=== PATIENT | female | born 1960 | race Caucasian/White ===

== ENCOUNTER 2024-09-22 13:28 | Outpatient (AMB) | payer BC, SELFPAY ==
--- NOTE | 2024-09-22 13:28 | A.OFFPC_ITS ---
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 Intake Note: New patient visit Television Equipment Operator Required: No Allergies Penicillins Allergy (Mild, Verified 09/22/24 13:33) Rash Sulfa (Sulfonamide Antibiotics) Allergy (Mild, Verified 09/22/24 13:33) Rash Medication List - Last Reconciled 09/22/24 by Eleonora Saldana PA-C atorvastatin 10 mg PO DAILY cholecalciferol (vitamin D3) 50 mcg PO DAILY docosahexaenoic acid (Algal [place]-3 DHA) PO multivitamin 1 tab PO DAILY psyllium husk (Metamucil) 0.4 grams PO DAILY thyroid (pork) (Irwin Thyroid) 60 mg PO DAILY Tobacco use date assessed: 09/22/24 Fall risk assessment: No Falls in past year Dental Screening Dental Screen Date: 09/22/24 Did you have a dental visit in the last 12 months?: Yes Did you have a dental problem in the last 6 months where you did not have access to dental care?: No Was dental information given to patient?: Patient has dentist HPI TORCH CUTTER Establish Care HPI Details Patient is a 64-year-old female with a significant past medical history of hypothyroidism, vitamin-D deficiency, chronic neck and hyperlipidemia presenting today to establish care. She is transferring from Dr. Rojas and Dr. Dorman and had a cpe in Apr 2024. CV: Blood pressure today in the office is 122/76. Cholesterol is managed with atorvastatin 10 mg daily. No fam hx of GA or CVA. Endo: Last TSH was WNL. She was on Irwin 60 mg daily until 3 weeks. Neuro: has trialed amitriptyline for headaches/neck pain. She states she stopped it last month. No change in sx. She says that she did have an x-ray of her neck but this was about 15 years ago. Never had an MRI of her head. Most of her headaches feels like it travels up from her neck. No vision changes, numbness, tingling or weakness. Sometimes if she squeezes her eyes shut she does feel like her head moves a little bit. She does not feel dizzy with her eyes lightly closed. No dizziness otherwise. Up-to-date eye exam Varnish Thinner: Follows in [place] with Donna Gonsalez- saw her last month Mammo: [place] this week [place] [place] Colonoscopy: never did, refused. Has a cologuard but has not sent it in yet Bone density: overdue [facility] Social History Housing: House Patient Tobacco Use Status: Former Tobacco user Cigarette Packs Per Day: 0.5 Years Smoked: 10 e-Cigarette/Vaping Use: Never Used Second Hand Smoke Exposure: No service: No Current occupational status: retired Cognitive needs: No Hearing needs: No Vision needs: No Physical exam (Primary Care) Tobacco/Smoking Status: Tobacco use Status Tobacco use date assessed 09/22/24 09/22/24 13:31 Patient Tobacco Use Status Never used Tobacco 09/22/24 13:31 e-Cigarette/Vaping Use Never Used 09/22/24 13:31 Const Orientation/consciousness: patient oriented x3 HENMT Ears: hearing grossly normal bilaterally Neck Thyroid: Thyroid normal Lymphatic: no lymphadenopathy noted Resp Auscultation: clear to auscultation bilaterally Cardio Rate: regular rate Rhythm: regular rhythm Heart sounds: S1 normal heart sound present and S2 normal heart sound present GI Inspection: Yes normal to inspection Palpation (GI): Soft to palpation and Other GI palpation findings present (nontender, no cva tenderness) Auscultation: normoactive bowel sounds Rectal Exam - Female: deferred Skin General skin exam: no rashes or lesions noted Neuro General: patient oriented x3, gait normal and no focal motor deficits Coding Level of Care Code New Pt Level 4 (91023) Complex EM visit Add On G2211 Diagnoses Dyslipidemia E78.5 Vitamin D deficiency E55.9 Hypothyroid E03.9 Chronic neck pain M54.2; G89.29 Tension headache G44.209 Assessment & Plan Assessment & Plan (1) Dyslipidemia: Code(s): E78.5 - Hyperlipidemia, unspecified Category: Medical Plan: Lipids and LFTs ordered. Continue atorvastatin (2) Vitamin D deficiency: Code(s): E55.9 - Vitamin D deficiency, unspecified Category: Medical Plan: Continue vitamin-D supplement. Bone density ordered. (3) Hypothyroid: Code(s): E03.9 - Hypothyroidism, unspecified Category: Medical Plan: TSH ordered. We will follow up pending test results (4) Chronic neck pain: Code(s): M54.2 - Cervicalgia; G89.29 - Other chronic pain Category: Medical Plan: X-ray ordered. (5) Tension headache: Code(s): G44.209 - Tension-type headache, unspecified, not intractable Category: Medical Plan: Encouraged massage therapy. Advised to contact me if anything changes or worsens. Plan Bone density ordered Labs ordered Encouraged her to complete the Cologuard. Orders: Orders Comprehensive [place]. Panel Fast Today E03.9 - Hypothyroidism, unspecified, E55.9 - Vitamin D deficiency, unspecified, E78.5 - Hyperlipidemia, unspecified, G44.209 - Tension-type headache, unspecified, not intractable, G89.29 - Other chronic pain, M54.2 - Cervicalgia Hemoglobin A1c Today E03.9 - Hypothyroidism, unspecified, E55.9 - Vitamin D deficiency, unspecified, E78.5 - Hyperlipidemia, unspecified, G44.209 - Tension- type headache, unspecified, not intractable, G89.29 - Other chronic pain, M54.2 - Cervicalgia, R73.01 - Impaired fasting glucose TSH reflex Free T4 Today E03.9 - Hypothyroidism, unspecified, E55.9 - Vitamin D deficiency, unspecified, E78.5 - Hyperlipidemia, unspecified, G44.209 - Tension- type headache, unspecified, not intractable, G89.29 - Other chronic pain, M54.2 - Cervicalgia XR DEXA axial skeleton Today E03.9 - Hypothyroidism, unspecified, E55.9 - Vitamin D deficiency, unspecified, N95.9 - Unspecified menopausal and perimenopausal disorder XR cervical spine 3V Today M54.2 - Cervicalgia Complete Blood Count Auto Diff Today E03.9 - Hypothyroidism, unspecified, E55.9 - Vitamin D deficiency, unspecified, E78.5 - Hyperlipidemia, unspecified, G44.209 - Tension-type headache, unspecified, not intractable, G89.29 - Other chronic pain, M54.2 - Cervicalgia Lipid Panel Today E03.9 - Hypothyroidism, unspecified, E55.9 - Vitamin D deficiency, unspecified, E78.5 - Hyperlipidemia, unspecified, G44.209 - Tension- type headache, unspecified, not intractable, G89.29 - Other chronic pain, M54.2 - Cervicalgia Microalbumin, Random (w Creat) Today E03.9 - Hypothyroidism, unspecified, E55.9 - Vitamin D deficiency, unspecified, E78.5 - Hyperlipidemia, unspecified, G44.209 - Tension-type headache, unspecified, not intractable, G89.29 - Other chronic pain, M54.2 - Cervicalgia Vitamin B12 and Folate Today E03.9 - Hypothyroidism, unspecified, E55.9 - Vitamin D deficiency, unspecified, E78.5 - Hyperlipidemia, unspecified, G44.209 - Tension-type headache, unspecified, not intractable, G89.29 - Other chronic pain, M54.2 - Cervicalgia
[2024-09-22 13:37] VITALS: BP 122/76; PULSE 81; RESP 12; O2SAT 98; BMI 20.2
== END 2024-09-22 14:04 | disposition home or self-care (01) ==
LOC: HO.HMCFM 13:29
PROVIDERS: PCP Physician Assistant; Visit Provider Physician Assistant
DX: E78.5 Hyperlipidemia, unspecified (principal); E55.9 Vitamin D deficiency, unspecified; E03.9 Hypothyroidism, unspecified; M54.2 Cervicalgia; G89.29 Other chronic pain; G44.209 Tension-type headache, unspecified, not intractable

== ENCOUNTER 2024-10-19 12:57 | Outpatient (REF) | payer MEDICARE, BC, SELFPAY ==
--- NOTE | ~2024-10-19 | XR_ITS ---
CLINICAL HISTORY: M54.2 - Cervicalgia 4 views cervical spine Comparison: None Findings: Minimal grade 1 retrolisthesis C6 on C7. No acute fractures or dislocation. [id number] multilevel disc space narrowing especially at C3-4 and C6-7. Moderate to moderately severe multilevel facet degenerative changes. Prevertebral soft tissues within normal limits. IMPRESSION: 1. No acute fracture in the cervical spine. 2. Moderate degenerative changes. This document has been electronically signed by: Chastity Parra DO on 10/20/2024 15:13:53
[2024-10-19 13:10] LABS: MANUAL DIFF FLAG NO
[2024-10-19 13:39] LABS: Basophils Absolute Auto 0.1 X10*3/uL (0.0-0.2); Basophils Percent Auto 1.2 % (0-2); Eosinophils Absolute Auto 0.2 X10*3/uL (0.0-0.4); Eosinophils Percent Auto 3.9 % (0-4); Hematocrit 40.6 % (37.0-47.0); Hemoglobin 13.4 g/dl (12.0-16.0); Imm Gran Abs Auto 0.01 X10*3/uL (0.00-0.03); Imm Gran Pct Auto 0.2 % (0.0-0.4); Lymphocytes Absolute Auto 1.2 X10*3/uL (1.2-4.9); Lymphocytes Percent Auto 28.6 % (20-40); Mean Corpuscular Hemoglobin 29.1 pg (27.0-33.0); Mean Corpuscular Volume 88.1 fL (80.0-98.0); Monocytes Absolute Auto 0.3 X10*3/uL (0.1-1.2); Monocytes Percent Auto 6.6 % (2-11); Neutrophils Absolute Auto 2.5 x10*3/uL (2.0-8.3); Neutrophils Percent Auto 59.5 % (45-73); Platelet Count 224 X10*3/uL (160-400); Red Blood Count 4.61 X10*6/uL (4.20-5.50); Red Cell Distribution Width 12.6 % (11.0-16.0); White Blood Count 4.1 X10*3/uL (4.8-10.8)
[2024-10-19 13:53] LABS: Estimated Average Glucose 100 mg/dL; Hemoglobin A1C 116.1433 umol/L; Hemoglobin A1c % 5.1 % (<6.0); Total Hemoglobin (HGBA1C) 3553.4044 umol/L
[2024-10-19 14:45] LABS: Creatinine Urine 67.31 mg/dL; Microalbumin Urine < 5.0 mg/L
[2024-10-19 14:49] LABS: Folate 12.4 ng/mL (> or = 4.0); Vitamin B12 617 pg/mL (200-900)
[2024-10-19 14:50] LABS: Alanine Aminotransferase 18 U/L (0-31); Albumin Level 4.8 g/dL (3.5-5.0); Alkaline Phosphatase 63 U/L (39-117); Anion Gap 10 (12-20); Aspartate Amino Transferase 26 U/L (5-31); Bilirubin Total 0.4 mg/dL (0.0-1.0); Blood Urea Nitrogen 16 mg/dL (9-16); Calcium 9.7 mg/dL (8.4-10.2); Carbon Dioxide 27 mmol/L (22-29); Chloride 108 mmol/L (96-108); Cholesterol 212 mg/dL (<200); Estimated Glomerular Filt Rate > 60; Glucose Fasting 84 mg/dL (60-99); HDL Cholesterol 76 mg/dL (>40); LDL Cholesterol Calculated 124 mg/dL (<100); Sodium 141 mmol/L (135-145); Triglycerides 60 mg/dL (<150)
[2024-10-19 15:07] LABS: TSH reflex Free T4 4.14 uIU/mL (0.32-4.0)
[2024-10-19 17:12] LABS: Free T4 (Free Thyroxine) 0.78 ng/dL (0.71-1.85)
== END 2024-10-19 12:58 | disposition home or self-care (01) ==
LOC: HO.XRAY 12:57
PROVIDERS: PCP Physician Assistant; Visit Provider Physician Assistant
DX: M54.2 Cervicalgia (principal); G89.29 Other chronic pain; G44.209 Tension-type headache, unspecified, not intractable; E03.9 Hypothyroidism, unspecified; E55.9 Vitamin D deficiency, unspecified; E78.5 Hyperlipidemia, unspecified; R73.01 Impaired fasting glucose
CPT/HCPCS: 36415; 72040; 80053; 80061; 82043; 82570; 82607; 82746; 83036; 84439; 84443; 85025

== ENCOUNTER → 2024-10-19 13:22 | Outpatient (BNV) | payer MEDICARE, BC, SELFPAY | PROVIDERS: PCP Physician Assistant; Visit Provider Radiology Diagnostic Radiology | DX: M50.30 Other cervical disc degeneration, unspecified cervical region (principal) | CPT/HCPCS: 72040 ==

== ENCOUNTER 2024-10-28 13:25 | Outpatient (REF) | payer MEDICARE, BC, SELFPAY ==
--- NOTE | ~2024-10-28 | MM_ITS ---
EXAMINATION: DXA BONE DENSITY AXIAL HISTORY: N95.9 - Unspecified menopausal and perimenopausal disorder TECHNIQUE: [employer] Dual energy absorptiometry (DEXA) of the lumbar spine, total left hip, and femoral neck was performed. COMPARISON: There are no prior studies for comparison. FINDINGS: The bone mineral density of the lumbar spine is 0.944 with a T-score of -2.0, and a Z-score of 0.1. This is indicative of osteopenia. The bone mineral density of the left total hip is 0.776 with a T-score of -1.8, and a Z-score of -0.3. This is indicative of osteopenia. The bone mineral density of the left femoral neck is 0.737 with a T-score of -2.2, and a Z-score of -0.4. This is indicative of osteopenia. FRACTURE RISK: The FRAX index suggests a risk of major osteoporotic fracture of 9.9%, and of hip fracture 1.9%. MM/XR DEXA axial skeleton IMPRESSION: Based on bone mineral density, and according to World Health Organization (WHO) criteria, the diagnosis is consistent with osteopenia. All bone density values are in grams per centimeter squared (g/cm2). Statistically, 68% of repeat scans fall within 1 SD (+/- 0.010 g/cm2 for AP spine L1-L4) and 1 SD (+/- 0.012 g/cm2 for femur total) FRAX is a trademark of the [employer]'s [employer] Metabolic Bone Disease, a World Health Organization (WHO) Collaborating Center. Electronically signed by: Raffaele Martin MD 10/28/2024 02:41 PM EDT
== END 2024-10-28 13:26 | disposition home or self-care (01) ==
LOC: HO.MAMMO 13:25
PROVIDERS: PCP Physician Assistant; Visit Provider Physician Assistant
DX: Z13.820 Encounter for screening for osteoporosis (principal); Z78.0 Asymptomatic menopausal state; E03.9 Hypothyroidism, unspecified; E55.9 Vitamin D deficiency, unspecified
CPT/HCPCS: 77080

== ENCOUNTER → 2024-10-28 13:30 | Outpatient (BNV) | payer MEDICARE, BC, SELFPAY | PROVIDERS: PCP Physician Assistant; Visit Provider Radiology Diagnostic Radiology | DX: E28.39 Other primary ovarian failure (principal) | CPT/HCPCS: 77080 ==

== ENCOUNTER 2024-11-25 15:13 | Outpatient (AMB) | payer MEDICARE, BC, SELFPAY ==
--- NOTE | 2024-11-25 15:19 | MHC.PC.OV ---
Vital Signs 11/25/24 15:22 Height 5 ft 2.68 in Weight 113 lb 6 oz BMI 20.3 BP 118/76 Blood Pressure Location Lt brachial Position Sitting Respiration 12 Pulse 90 Pulse Source Pulse Oximeter Pulse Oximetry (%) 95 Oxygen Delivery Method Room Air Intake Visit Reasons: labs and meds Intake Note: Lab results and medication follow up. Went back on amitriptylin. Kiss Setter Hand Required: No Allergies Penicillins Allergy (Mild, Verified 11/25/24 15:22) Rash Sulfa (Sulfonamide Antibiotics) Allergy (Mild, Verified 11/25/24 15:22) Rash Medication List - Last Reconciled 11/25/24 by Eleonora Saldana PA-C amitriptyline 30 mg PO BEDTIME atorvastatin 10 mg PO DAILY cholecalciferol (vitamin D3) 50 mcg PO DAILY docosahexaenoic acid (Algal [place]-3 DHA) PO hydrocortisone 2.5% topical BID multivitamin 1 tab PO DAILY psyllium husk (Metamucil) 0.4 grams PO DAILY Tobacco use date assessed: 11/25/24 Fall risk assessment: No Falls in past year Last assessed Fall Risk: 11/25/24 Dental Screening Dental Screen Date: 09/22/24 HPI labs and meds HPI Details Patient is a 64-year-old female with a significant past medical history of hypothyroidism, vitamin-D deficiency, chronic neck and hyperlipidemia presenting today to [facility] care. She is transferring from Dr. Rojas and Dr. Dorman and had a cpe in Apr 2024. CV: Blood pressure today in the office is 118/76. Cholesterol is managed with atorvastatin 10 mg daily. No fam hx of GA or CVA. Endo: Last TSH was slightly elevated. She states that she has no symptoms of hypothyroidism and wishes to remain off of [place] thyroid. She has not been off of this for a few months and feels fine. She would rather just screen the TSH. Neuro: She is currently on amitriptyline 30 mg for head/neck pain and states that it does seem like it helps. She had previously stopped it for about a month in the neck pain was a bit worse but restarting it has made some improvement. She did have an x-ray which did show moderate severe arthritic changes. She states that Tylenol and Motrin do not do anything for her. She has seen neurology in the past for this and states that she is not sure if she wants to go back for her headaches. Most of her headaches feels like it travels up from her neck. No vision changes, numbness, tingling or weakness. 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 Has a cologuard but has not sent it in yet Bone density: UTD- osteopenia on vitamin-D, calcium [facility] Social History Housing: House Patient Tobacco Use Status: Former Tobacco user Cigarette Packs Per Day: 0.5 Years Smoked: 10 e-Cigarette/Vaping Use: Never Used Second Hand Smoke Exposure: No service: No Current occupational status: retired Cognitive needs: No Hearing needs: No Vision needs: No Questionnaire Thrive Questionnaire Date Thrive assessed: 09/22/24 I am a: Patient What is your living situation today?: I have a steady place to live Within the past 12 months, did the food you bought not last and you didn't have the money to get more?: Never true Within the past 12 months, did you worry whether your food would run out before you got money to buy more?: Never true Do you have trouble paying for medicines?: No Do you have trouble getting transportation to medical appointments?: No Do you have trouble paying your heating and electricity bill?: No Do you have trouble taking care of your child, family member or friend?: No Do you have trouble with day-to-day activities such as bathing, preparing meals, shopping, managing finances, etc.?: No Are you currently unemployed and looking for a job?: No Are you interested in more education?: No Please select the resources that you would like help with: None Currently or been in a relationship where the following occur: No concerns reported THRIVE Score: 0 AUDIT C Alcohol Use Questionnaire (AUDIT-C) 1. How often do you have a drink containing alcohol?: 4 or more times a week 2. How many drinks containing alcohol do you have on a typical day when you are drinking?: 1 or 2 3. How often do you have six or more drinks on one occasion?: Never Total Score: 4 Physical exam (Primary Care) Vital Signs: Last Vital Signs Pulse 90 11/25/24 15:22 Resp 12 11/25/24 15:22 BP 118/76 11/25/24 15:22 Pulse Ox 95 11/25/24 15:22 Oxygen Delivery Method Room Air 11/25/24 15:22 BMI result Body Mass Index 20.3 Tobacco/Smoking Status: Tobacco use Status Tobacco use date assessed 11/25/24 11/25/24 15:23 Patient Tobacco Use Status Former Tobacco user 11/25/24 15:23 e-Cigarette/Vaping Use Never Used 11/25/24 15:23 Thrive Assessment: Date of Thrive Assessment Date Thrive assessed 09/22/24 11/25/24 15:23 Currently or been in a relationship where the following occur: No concerns reported Const Orientation/consciousness: patient oriented x3 HENMT Ears: hearing grossly normal bilaterally Neck Thyroid: Thyroid normal Lymphatic: no lymphadenopathy noted Resp Auscultation: clear to auscultation bilaterally Cardio Rate: regular rate Rhythm: regular rhythm Heart sounds: S1 normal heart sound present and S2 normal heart sound present GI Inspection: Yes normal to inspection Palpation (GI): Soft to palpation and Other GI palpation findings present (nontender, no cva tenderness) Auscultation: normoactive bowel sounds Rectal Exam - Female: deferred Skin General skin exam: no rashes or lesions noted Neuro General: patient oriented x3, gait normal and no focal motor deficits Results Reviewed Results Reviewed: Laboratory Tests 10/19/24 13:09 WBC 4.1 L RBC 4.61 Hgb 13.4 Hct 40.6 Plt Count 224 Sodium 141 Potassium 4.0 Chloride 108 Carbon Dioxide 27 Anion Gap 10 L BUN 16 Creatinine 0.77 Estimated GFR > 60 Fasting Glucose 84 Hemoglobin A1c % 5.1 Calcium 9.7 Total Bilirubin 0.4 AST 26 ALT 18 Alkaline Phosphatase 63 Total Protein 7.0 Albumin 4.8 Triglycerides 60 Cholesterol 212 H LDL Cholesterol, Calc 124 H HDL Cholesterol 76 Vitamin B12 617 TSH 4.14 H Free T4 0.78 MM/XR DEXA axial skeleton IMPRESSION: Based on bone mineral density, and according to World Health Organization (WHO) criteria, the diagnosis is consistent with osteopenia. Coding Level of Care Code Est Pt Level 4 (29303) Complex EM visit Add On G2211 Diagnoses Chronic neck pain M54.2; G89.29 Hypothyroid E03.9 Tension headache G44.209 Assessment & Plan Assessment & Plan (1) Chronic neck pain: Code(s): M54.2 - Cervicalgia; G89.29 - Other chronic pain Category: Medical Plan: We will try adding meloxicam. Discussed risks and benefits and adverse effects of the medication. (2) Hypothyroid: Code(s): E03.9 - Hypothyroidism, unspecified Category: Medical Plan: We will continue to monitor (3) Tension headache: Code(s): G44.209 - Tension-type headache, unspecified, not intractable Category: Medical Plan: I did offer consult to neurology but she is going to wait and think about this. She will continue with the amitriptyline. Orders: Orders TSH reflex Free T4 11/25/24 E03.9 - Hypothyroidism, unspecified Medications: New meloxicam 15 mg PO DAILY 30 tabs 1RF
[2024-11-25 15:22] VITALS: BP 118/76; PULSE 90; RESP 12; O2SAT 95; BMI 20.3
== END 2024-11-25 15:50 | disposition home or self-care (01) ==
LOC: HO.HMCFM 15:14
PROVIDERS: PCP Physician Assistant; Visit Provider Physician Assistant
DX: M54.2 Cervicalgia (principal); G89.29 Other chronic pain; E03.9 Hypothyroidism, unspecified; G44.209 Tension-type headache, unspecified, not intractable

== ENCOUNTER → 2024-11-25 15:13 | Outpatient (BNVA) | payer MEDICARE, BC, SELFPAY | PROVIDERS: PCP Physician Assistant; Visit Provider Physician Assistant | DX: M54.2 Cervicalgia (principal); G89.29 Other chronic pain; E03.9 Hypothyroidism, unspecified; G44.209 Tension-type headache, unspecified, not intractable | CPT/HCPCS: 99212 ==

== ENCOUNTER 2025-04-27 15:12 | Outpatient (REF) | payer MEDICARE, BC, SELFPAY ==
--- NOTE | ~2025-04-27 | XR_ITS ---
EXAMINATION: XR TOES, LEFT CLINICAL INFORMATION: M79.675 - Pain in left toe(s) COMPARISON: None available. TECHNIQUE: 3 views of the left third toe were obtained. FINDINGS: There is an oblique fracture of the mid diaphysis of the proximal phalanx of the third digit. There is mild displacement. No significant angulation or override. Fracture appears possibly subacute, with mild sclerosis of the fracture lines. No periosteal new bone formation. No additional fractures. Joint spaces are maintained. No soft tissue abnormality. XR/XR toe LT min 2V IMPRESSION: Subacute appearing spiral mildly displaced fracture of the mid diaphysis of the proximal phalanx of the third digit. Electronically signed by: Tai Mahoney MD 04/27/2025 03:43 PM EDT
--- OUTSIDE RECORDS SUMMARY | 2025-04-27 18:46 | XMS_ITS | Encounter Summary ---
Author Organization [facility] Address [address] [place] [address] Phone Care Team Providers Care Stave And Bolt Equalizer Name Role Phone Alecia Rojas MD Unavailable [phone] Alecia Rojas MD Primary Care Provider [phone] Eleonora Saldana Primary Care Provider [phone] Encounter Details Date Type Department Care Team (Late st Contact Info) Description 04/22/2024 Procedure Pass [facility], [facility] [address] [place] [address] Social History Tobacco Use Types Packs/Day Years Used Date Smoking Tobacco: Former Cigarettes 0.3 10 0 07/14/1981 - 07/14/1991 Smokeless Tobacco: Never Comments:about 25 years ago Alcohol Use Standard Drinks/Week Comments Yes 5 (1 standard drink = 0.6 oz pur e alcohol) Education Answer Date Recorded Are you interested in more education? Not on sierra e 11/08/2022 Are you concerned about learning? Not on file 11/08/2022 No 11/08/2022 No 11/08/2022 Digital Access Answer Date Recorded No 12/09/2022 No 12/09/2022 Reliable internet access at home? Not on file 12/09/2022 Device with a working camera? Not on file Comments No Sex and Gender Information Value Date Recorded Sex Assigned at Female 10/19/2021 11:45 PM EDT Legal Sex Female 9:49 PM EDT Gender Identity Female 10/19/2021 11:45 PM EDT Sexual Orientation Not on file documented as of this encounter Plan of Treatment Upcoming Encounters Date Type Department Care Team (Late st Contact Info) Description 03/10/2026 10:00 AM EDT Office Visit [facility] [address] [facility] [address] [place] [address] Josey Garcia MD [address] [facility] [address] [place] [address] [email or web address] documented as of this encounter Visit Diagnoses Not on filedocumented in this encounter Care Teams Stave And Bolt Equalizer Relationship Specialty Start Date End Date Alecia Rojas MD [address] [place] [address] [email or web address] PCP - General 07/17/17 09/26/24 Eleonora Saldana PA [address] [place] [id number] PCP - General Physician Business Excellence Manager 09/27/24 Alecia Rojas MD [address] [place] [address] [email or web address] Historical LMR Provider 05/03/17 documented as of this encounter Additional Source Comments The information contained in this document represents components of the legal health record. It is not the complete legal health record.[facility]
--- OUTSIDE RECORDS SUMMARY | 2025-04-27 18:46 | XMS_ITS | Encounter Summary ---
Author Organization [facility] Address [address] [place] [address] Phone Care Team Providers Care Actuarial Associate Name Role Phone Angeles Rody Jose BRANDON Unavailable Liudmila Laws MD Unavailable [phone] Alecia Rojas MD Unavailable Misael Ley MD Unavailable Alecia Rojas MD Primary Care Provider Eleonora Saldana Primary Care Provider [phone] Encounter Details Date Type Department Care Team (Late st Contact Info) Description 05/01/2021 Procedure Pass [facility], [address] [address] Social History Tobacco Use Types Packs/Day Years Used Date Smoking Tobacco: Former Smokeless Tobacco: Never Comments:about 25 years ago Comments No Sex and Gender Information Value Date Recorded Sex Assigned at Female 10/19/2021 11:45 PM EDT Legal Sex Female 9:49 PM EDT Gender Identity Female 10/19/2021 11:45 PM EDT Sexual Orientation Not on file documented as of this encounter Plan of Treatment Upcoming Encounters Date Type Department Care Team (Late st Contact Info) Description 03/10/2026 10:00 AM EDT Office Visit [facility] [address] [facility] [address] [place] [address] Josey Garcia MD [address] [facility] [place] [address] [email or web address] documented as of this encounter Visit Diagnoses Not on filedocumented in this encounter Care Teams Actuarial Associate Relationship Specialty Start Date End Date Alecia Rojas MD [address] [place] [address] [email or web address] PCP - General 07/17/17 09/26/24 Eleonora Saldana PA [address] [place] [address] PCP - General Physician Car Inspector 09/27/24 Rody Angeles CNM [address] [place] [id number] Historical LMR Provider 05/03/17 2 Liudmila Laws MD [address] [facility], 2nd [place] [address] [email or web address] Historical LMR Provider 05/03/17 Alecia Rojas MD [address] [place] [address] [email or web address] Historical LMR Provider 05/03/17 Misael Ley MD [address] [facility] [address] [place] [address] [email or web address] Historical LMR Provider 05/03/17 07/21/21 documented as of this encounter Additional Source Comments The information contained in this document represents components of the legal health record. It is not the complete legal health record.[facility]
--- OUTSIDE RECORDS SUMMARY | 2025-04-27 18:46 | XMS_ITS | Clinical Summary ---
Author Organization [facility] Address [address] [place] [address] Phone Care Team Providers Care Town Manager Name Role Phone Alecia Rojas MD Unavailable [phone] Eleonroa Saldana Primary Care Provider [phone] Allergies Active Allergy Reactions Criticality Noted Date Comments Penicillins Rash Low 06/30/2018 Unknown severity. Happened when she was [age] Sulfa (Sulfonamide Antibiotics) Rash Medium 06/30/2018 Rash with red dots Medications thyroid, pork, 60 mg Tab Take 60 mg by mouth daily. Active amitriptyline (ELAVIL) 10 MG tabletIndication s:3 tablets at night Take 30 mg by mouth nightly. Active atorvastatin (LIPITOR) 10 MG tablet 10 mg. 05/14/2023 Active Active Problems Patient Care Coordination No te Formatting of this note migh t be different from the original. Height 163.2cm no shoes 06/30/18 No additional problems on file Social History Tobacco Use Types Packs/Day Years Used Date Smoking Tobacco: Former Cigarettes 0.3 10 0 07/14/1981 - 07/14/1991 Smokeless Tobacco: Never Tobacco Cessation:Counseling Given: Not Answered Comments:about 25 years ago Alcohol Use Standard [...] PM EDT Sexual Orientation Not on file Last Filed Vital Signs Vital Sign Reading Time Taken Comments Blood Pressure 110/78 05/27/2024 2:26 PM EST Pulse 87 06/30/2018 2:51 PM EST Temperature 36.7 C (98.1 F) 06/30/2018 2:51 PM EST Respiratory Rate - - Oxygen Saturation 99% 05/10/2020 1:00 PM EDT Inhaled Oxygen Concentration - - Weight 52.3 kg (115 lb 3.2 oz) 05/27/2024 2:26 P M EST Height 163.2 cm (5' 4.25 ) 06/30/2018 2:43 PM ES T no shoes Body Mass Index 19.62 06/30/2018 2:43 PM EST Plan of Treatment Upcoming Encounters Date Type Department Care Team (Late st Contact Info) Description 03/10/2026 10:00 AM EDT Office Visit [facility] [place] [facility] [address] [facility] [address] [place] [address] Josey Garcia MD [address] [facility] [address] [place] [address] [email or web address] Maintenance Due Date Last Done Comments DEPRESSION SCREENING 1971 HEPATITIS C SCREENING 1977 HIV ONE-TIME SCREENING (18-65 YEARS) 1977 COLOGUARD 2004 COLONOSCOPY 2004 COLORECTAL CANCER SCREENING 2004 FIT TEST 2004 FOBT 2004 SIGMOIDOSCOPY 2004 VIRTUAL COLONOSCOPY 2004 PNEUMOCOCCAL VACCINES (50+ years) (1 of 1 - PCV) 2009 OSTEOPOROSIS SCREENING INITIAL (ONE-TIME) 2024 INFLUENZA VACCINE (#1) 2025 COVID-19 VACCINE ( season) 2025 08/08/2022, 11/24/2020 MAMMOGRAM 09/27/2026 09/27/2024, 10/12, 03/25/2018 LIPID PANEL 07/25/2028 07/25/2023, 10/12, 05/23/2021, Additional history exists Adult Td,Tdap Booster 01/28/2034 01/29/2024 RSV VACCINE (1 - 1-dose 75+ series) 2034 ZOSTER VACCINES Completed 01/29/2024, 08/14/2023 SMOKING STATUS SCREENING (Once After 26 Yrs) Completed 09/27/2024 HEPATITIS A VACCINES Aged Out No long er eligible based on patient's age to complete this topic HIB VACCINES Aged Out No longer eligi ble based on patient's age to complete this topic MENINGOCOCCAL VACCINES (ACWY) Aged Out No longer eligible based on patient's age to complete this topic MENINGOCOCCAL VACCINES (B) Aged Out N o longer eligible based on patient's age to complete this topic Medical Devices Not on file Procedures Procedure Name Priority Date/Time Associated Diagnosis Comments BI MAMMOGRAM SCREENING WITH TOMOSYNTHESIS WITH CAD (BILATERAL) Routine 09/27/2024 2:39 PM EDT Breast screening LIPID PANEL Routine 07/25/2023 11:43 AM EST PE (physical exam), routine Hypothyroidism, unspecified type Hyperlipidemia, unspecified hyperlipidemia type from Last 3 Months or Most Recently Relevant to Health Maintenance Results * BI MAMMOGRAM SCREENING WITH TOMOSYNTHESIS WITH CAD (BILATERAL) (09/27/2024 2:39 PM EDT) Anatomical Region Laterality Modality Breast Left, Breast Right, Breast Bilateral Bila teral Mammography 09/29/2024 5:39 AM EDT Impressions 09/29/2024 5:40 AM EDT No mammographic evidence of malignancy in either breast. Annual screening mammography is recommended. BI-RADS 1 NEGATIVE The patient will be notified of the results and recommendations. Narrative 09/29/2024 5:40 AM EDT BI MAMMOGRAM SCREENING WITH TOMOSYNTHESIS WITH CAD (BILATERAL) Additional patient information: Screening. COMPARISON: Comparison is made with relevant prior imaging. Breast composition: The breasts are heterogeneously dense, which may obscure small masses. FINDINGS: No abnormal masses, suspicious calcifications, or other significant findings are identified mammographically in either breast. Procedure Note Andria Stokes MD - 09/29/2024 BI MAMMOGRAM SCREENING WITH TOMOSYNTHESIS WITH CAD (BILATERAL) Additional patient information: Screening. COMPARISON: Comparison is made with relevant prior imaging. Breast composition: The breasts are heterogeneously dense, which mayobscure small masses. FINDINGS: No abnormal masses, suspicious calcifications, or other significantfindings are identified mammographically in either breast. IMPRESSION: No mammographic evidence of malignancy in either breast. Annual screening mammography is recommended. BI-RADS 1 NEGATIVE The patient will be notified of the results and recommendations. Eleonora MORENO IMG MG EXAMS Final Resu lt * (ABNORMAL) Lipid panel (07/25/2023 11:43 AM EST) HDL 79 mg/dL [facility] Comment: Interpretation <40 mg/dL: Low HDL cholesterol (major risk factor for CHD) Greater than or equal to 60 mg/dL: High HDL cholesterol ( negative risk factor for CHD) HDL - cholesterol is affected by a number of factors, e.g. smoking, excerise, hormones, sex and age. CHOLESTEROL 189 0 - 240 mg/dL [facility] TRIGLYCERIDES 68 30 - 160 mg/dL [facility] LDL 96 50 - 129 mg/dL [facility] Comment: LDL levels in terms of risk for coronary heart disease: <100 mg/dL: Optimal 100-129 mg/dL: Near or above optimal 130-159 mg/dL: Borderline high 160-189 mg/dL: High >190 mg/dL: Very High CARDIAC RISK RATIO 2.4(L) 3.3 - 4.4 C [facility] Blood 07/25/2023 11:4 3 AM EST 07/25/2023 11:45 AM EST us Mine MORENO LAB BLOOD ORDERABLES Final Resu lt [address] [address] from Last 3 Months or Most Recently Relevant to Health Maintenance Insurance [facility] MEDICARE PART A & B [facility] MEDICARE PART A & B [facility] MEDICARE PART A & B [facility] MEDICARE PART A & B [facility] Address: [facility] [id number] [place] [address] MEDICARE PART A & B [facility] MEDICARE PART A & B Care Teams Town Manager Relationship Specialty Start Date End Date Eleonora Saldana PA [address] [place] [address] PCP - General Physician Security Officers And Guards 09/27/24 Alecia Rojas MD [address] [place] [address] [email or web address] Historical LMR Provider 05/03/17 Additional Source Comments The information contained in this document represents components of the legal health record. It is not the complete legal health record.[facility]
--- OUTSIDE RECORDS SUMMARY | 2025-04-27 18:46 | XMS_ITS | Encounter Summary ---
Author Organization [facility] Address [address] [place] [address] [place] [address] Phone Care Team Providers Care Nurse Advocate Name Role Phone Alecia Rojas MD Unavailable [phone] Alecia Rojas MD Primary Care Provider Eleonora Saldana Primary Care Provider [phone] Encounter Details Date Type Department Care Team (Late st Contact Info) Description 04/22/2024 Transcribe Orders Virtual Department [address] [place] [address] Alecia Rojas MD [address] [place] [address] [email or web address] Breast screening (Primary Dx) Social History Tobacco Use Types Packs/Day Years Used Date Smoking Tobacco: Former Smokeless Tobacco: Never Comments:about 25 years ago Education Answer Date Recorded Are you interested [...] 03/10/2026 10:00 AM EDT Office Visit [facility] [place] [facility] [address] [facility] [address] [place] [address] Josey Garcia MD [address] [facility] [address] [place] [address] [email or web address] documented as of this encounter Visit Diagnoses Diagnosis Breast screening- Primary Breast screening, unspecified documented in this encounter Care Teams Nurse Advocate Relationship Specialty Start Date End Date Alecia Rojas MD [address] [place] [address] PCP - General 07/17/17 09/26/24 Eleonora Saldana PA [address] [place] [address] PCP - General Physician Bridge Carpenter 09/27/24 Alceia Rojas MD [address] [place] [address] [email or web address] Historical LMR Provider 05/03/17 documented as of this encounter Additional Source Comments The information contained in this document represents components of the legal health record. It is not the complete legal health record.[facility]
--- OUTSIDE RECORDS SUMMARY | 2025-04-27 18:46 | XMS_ITS | Encounter Summary ---
Author Organization [facility] Address [address] [place] [address] [place] [address] Phone Care Team Providers Care Department Administrator Name Role Phone [place] Rody Jose BRANDON Unavailable [phone] Liudmila Laws MD Unavailable [phone] Alecia Rojas MD Unavailable Misael Ley MD Unavailable Alecia Rojas MD Primary Care Provider Eleonora Saldana Primary Care Provider [phone] Encounter Details Date Type Department Care Team (Latest Contact Info) Description 05/01/2021 Transcribe Orders Virtual Department 30 [place] [address] Mine Morrell PA [address] [place] [address] [email or web address] Breast screening (Primary Dx) Social History Tobacco [...] 03/10/2026 10:00 AM EDT Office Visit [facility] [place] [facility] [address] [facility] [address] [place] [address] Josey Garcia MD 15 [facility] [address] [place] [address] [email or web address] documented as of this encounter Results * BI MAMMOGRAM SCREENING WITH TOMOSYNTHESIS WITH CAD (BILATERAL) (10/22/2021 1:20 PM EDT) Anatomical Region Laterality Modality Breast Left, Breast Right, Breast Bilateral Bila teral Mammography 10/22/2021 4:11 PM EDT Impressions 10/22/2021 4:17 PM EDT No mammographic signs of malignancy. Annual screening is recommended. BI-RADS CATEGORY: 1 - Negative. DENSITY: The breast tissue is heterogeneously dense, which could obscure a lesion on mammography. Narrative 10/22/2021 4:17 PM EDT Bilateral mammography is performed in conjunction with computed aided detection. 3-D tomography along with 2-D C view imaging was also performed. Comparison made to previous dated as far back as 04/28/2007 and as recent as 03/25/2018. No suspicious masses, areas of architectural distortion or suspicious microcalcifications. Procedure Note Wilber Miller MD - 10/22/2021 Bilateral mammography is performed in conjunction with computed aideddetection. 3-D tomography along with 2-D C view imaging was alsoperformed. Comparison made to previous dated as far back as 04/28/2007 andas recent as 03/25/2018. No suspicious masses, areas of architectural distortion or suspiciousmicrocalcifications. IMPRESSION: No mammographic signs of malignancy. Annual screening is recommended. BI-RADS CATEGORY: 1 - Negative. DENSITY: The breast tissue is heterogeneously dense, which could obscurea lesion on mammography. Mine MORENO IMG MG EXAMS Final Result documented in this encounter Visit Diagnoses Diagnosis Breast screening- Primary Breast screening, unspecified Breast screening Breast screening, unspecified documented in this encounter Care Teams Department Administrator Relationship Specialty Start Date End Date Alecia Rojas MD 15 [place] [address] [email or web address] PCP - General 07/17/17 09/26/24 Eleonora Saldana PA [address] [place] [address] PCP - General Physician Textile Colorist Dyer 09/27/24 Rody [place] CNM [address] [place] [address] Historical LMR Provider 05/03/17 2 Liudmila Laws MD [address] [place] [address] [email or web address] Historical LMR Provider 05/03/17 Alecia Rojas MD [address] [place] [address] [email or web address] Historical LMR Provider 05/03/17 Misael Ley MD [address] [place] [address] [email or web address] Historical LMR Provider 05/03/17 07/21/21 documented as of this encounter Additional Source Comments The information contained in this document represents components of the legal health record. It is not the complete legal health record.[facility]
--- OUTSIDE RECORDS SUMMARY | 2025-04-27 18:46 | XMS_ITS | Encounter Summary ---
Author Organization [facility] Address [address] [place] [address] [place] [address] Phone Care Team Providers Care Obstetric Anaesthetist Name Role Phone Rody [place] CNM Unavailable Liudmila Laws MD Unavailable Alecia Rojas MD Unavailable Misael Ley MD Unavailable Alecia Rojas MD Primary Care Provider Eleonora Saldana Primary Care Provider [phone] Encounter Details Date Type Department Care Team (Latest Contact Info) Description 05/22/2020 Transcribe Orders [facility] [address] [place] [address] Mine Morrell PA [address] [place], [place] [id number] .[email or web address] Chest pain, unspecified type (Primary Dx); Hyperlipidemia, unspecified hyperlipidemia type; Hypothyroidism, unspecified type Social History Tobacco Use Types Packs/Day Years [...] Description 03/10/2026 10:00 AM EDT Office Visit [facility] [place] [facility] [address] [facility] [address] [place] [address] Josey Garcia MD [address] [facility] [address] [place] [address] [email or web address] documented as of this encounter Results * Magnesium (05/22/2020 10:43 AM EST) MAGNESIUM 2.1 1.6 - 2.6 mg/dL [facility] Blood 05/22/2020 10:4 3 AM EST 05/22/2020 10:46 AM EST us Mine MORENO LAB BLOOD ORDERABLES Final Resu lt [facility] [address] [place] [address] * CBC (05/22/2020 10:43 AM EST) WBC 4.04 4.00 - 11.00 K/uL [facility] Comment:Note Reference Range updates to all CBC and Differential results. RBC 4.31 3.72 - 5.30 M/uL [facility] HGB 12.6 11.4 - 15.9 g/dL [facility] Comment:Note updated Referen ce Ranges for all CBC and Differential results. HCT 37.5 34.2 - 46.8 % [facility] PLT 217 140 - 430 K/uL [facility] MCV 87.0 78.0 - 97.0 fL [facility] MCH 29.2 25.0 - 33.0 pg [facility] MCHC 33.6 32.0 - 36.0 g/dL [facility] RDW 12.5 11.0 - 16.0 % [facility] MPV 9.8 8.4 - 12.8 fl [facility] NRBC 0.00 0 /100 WBCs [facility] ABSOLUTE NRBC 0.00 0 K/uL [facility] Blood 05/22/2020 10:4 3 AM EST 05/22/2020 10:46 AM EST Mine MORENO LAB BLOOD ORDERABLES Final Resu lt Performing Organization Address City/[facility]/ZIP Co de Phone Number [address] [address] * TSH with reflex (05/22/2020 10:43 AM EST) TSH 1.25 0.27 - 4.20 uIU/mL [facility] Blood 05/22/2020 10:4 3 AM EST 05/22/2020 10:46 AM EST Mine Petros [place] LAB BLOOD ORDERABLES Final Resu lt Performing Organization Address City/[facility] Co de Phone Number [address] [address] * (ABNORMAL) Lipid panel (05/22/2020 10:43 AM EST) HDL 75 mg/dL [facility] Comment: Interpretation <40 mg/dL: Low HDL cholesterol (major risk factor for CHD) Greater than or equal to 60 mg/dL: High HDL cholesterol ( negative risk factor for CHD) HDL - cholesterol is affected by a number of factors, e.g. smoking, excerise, hormones, sex and age. CHOLESTEROL 276(H) 0 - 240 mg/dL [facility] TRIGLYCERIDES 111 30 - 160 mg/dL [facility] LDL 179(H) 50 - 129 mg/dL [facility] Comment: LDL levels in terms of risk for coronary heart disease: <100 mg/dL: Optimal 100-129 mg/dL: Near or above optimal 130-159 mg/dL: Borderline high 160-189 mg/dL: High >190 mg/dL: Very High CARDIAC RISK RATIO 3.7 3.3 - 4.4 C [facility] Blood 05/22/2020 10:4 3 AM EST 05/22/2020 10:46 AM EST Mine MORENO LAB BLOOD ORDERABLES Final Resu lt [address] [address] * Comprehensive metabolic panel (05/22/2020 10:43 AM EST) SODIUM 142 133 - 146 mmol/L [facility] POTASSIUM 3.9 3.3 - 5.1 mmol/L [facility] CHLORIDE 106 96 - 108 mmol/L [facility] CO2 27 21 - 35 mmol/L [facility] BUN 18 6 - 19 mg/dL [facility] CREATININE 0.70 0.5 - 1.5 mg/dL [facility] GLUCOSE 94 70 - 99 mg/dL [facility] ALBUMIN 4.5 3.9 - 4.8 g/dL [facility] TOTAL PROTEIN 6.6 6.5 - 8.0 g/dL [facility] CALCIUM 9.5 8.4 - 10.3 mg/dL [facility] ALKALINE PHOSPHATASE 62 39 - 117 U/L [facility] TOTAL BILIRUBIN 0.3 0.0 - 1.2 mg/dL [facility] AST 25 0 - 37 U/L [facility] ALT 18 0 - 40 U/L [facility] GLOBULIN 2.1 1 - 4.8 g/dL [facility] EGFR 94 >59 mL/min/1.7 3m2 [facility] Comment:Estimated glomerular filtration rate calculated using the CKD-EPI equation. ANION GAP 13 10 - 20 mmol/L [facility] Blood 05/22/2020 10:4 3 AM EST 05/22/2020 10:46 AM EST Mine MORENO LAB BLOOD ORDERABLES Final Resu lt Performing Organization Address City/[facility]/ZIP Co de Phone Number [address] [address] documented in this encounter Visit Diagnoses Diagnosis Chest pain, unspecified type- Primary Hyperlipidemia, unspecified hyperlipidemia type Hypothyroidism, unspecified type documented in this encounter Care Teams Obstetric Anaesthetist Relationship Specialty Start Date End Date Alecia Rojas MD [address] [place] [address] [email or web address] PCP - General 07/17/17 09/26/24 Eleonora Saldana PA [address] [place] [address] PCP - General Physician Target Aircraft Technician 09/27/24 Rody [place] CNM [address] [place] [address] Historical LMR Provider 05/03/17 2 Liudmila Laws MD [address] [place] [address] [email or web address] Historical LMR Provider 05/03/17 Alecia Rojas MD [address] [place] [address] [email or web address] Historical LMR Provider 05/03/17 Misael Ley MD [address] [place] [address] [email or web address] Historical LMR Provider 05/03/17 07/21/21 documented as of this encounter Additional Source Comments The information contained in this document represents components of the legal health record. It is not the complete legal health record.[facility]
--- OUTSIDE RECORDS SUMMARY | 2025-04-27 18:46 | XMS_ITS | Encounter Summary ---
Author Organization [facility] Address [address] [facility] [address] [place] [address] Phone Care Team Providers Care Student Counsellor Name Role Phone Alecia Rojas MD Unavailable [phone] Eleonora Saldana Primary Care Provider [phone] Encounter Details Date Type Department Care Team (Late st Contact Info) Description 09/27/2024 Ancillary Orders Virtual Department [address] [place] [address] Eleonora Saldana PA [address] [place], [place] [id number] Breast screening (Primary Dx) Social History Tobacco [...] Description 03/10/2026 10:00 AM EDT Office Visit [facility] [place] [facility] [address] [facility] [address] [place] [address] Josey Garcia MD [address] [facility] [address] [place] [address] [email or web address] documented as of this encounter Results * [...] MORENO IMG MG EXAMS Final Resu lt documented in this encounter Visit Diagnoses Diagnosis Breast screening Breast screening, unspecified Breast screening- Primary Breast screening, unspecified documented in this encounter Care Teams Student Counsellor Relationship Specialty Start Date End Date Eleonora Saldana PA [address] [place] [address] PCP - General Physician All Around Patternmaker 09/27/24 Alecia Rojas MD 15 [place] [address] [email or web address] Historical LMR Provider 05/03/17 documented as of this encounter Additional Source Comments The information contained in this document represents components of the legal health record. It is not the complete legal health record.[facility]
--- OUTSIDE RECORDS SUMMARY | 2025-04-27 18:46 | XMS_ITS | Encounter Summary ---
Author Organization [facility] Address [address] [place] [phone] Phone Care Team Providers Care Miter Operator Name Role Phone Rody Angeles CNM Unavailable Liudmila Laws MD Unavailable [phone] Alecia Rojas MD Unavailable Misael Ley MD Unavailable Alecia Rojas MD Primary Care Provider Eleonora Saldana Primary Care Provider [phone] Encounter Details Date Type Department Care Team (Late st Contact Info) Description 02/03/2018 Ancillary Orders Virtual Department [address] [place] [address] Alecia Rojas MD [address] [place] [address] [phone] [email or web address] Breast screening Social History Tobacco Use Types Packs/Day Years Used Date Smoking Tobacco: Never Assessed Comments Unknown Sex and Gender Information Value Date Recorded Sex Assigned at Female 10/19/2021 11:45 PM EDT Legal Sex Female 9:49 PM EDT Gender Identity Female 10/19/2021 11:45 PM EDT Sexual Orientation Not on file documented as of this encounter Plan of Treatment Upcoming Encounters Date Type Department Care Team (Late st Contact Info) Description 03/10/2026 10:00 AM EDT Office Visit [facility] Primary Care [address] [place] [address] Josey Garcia MD [address] [facility] [address] [place] [address] [email or web address] documented as of this encounter Results * BI MAMMOGRAM SCREENING WITH TOMOSYNTHESIS WITH CAD (BILATERAL) (03/25/2018 3:56 PM EDT) Anatomical Region Laterality Modality Breast Left, Breast Right, Breast Bilateral Bila teral Mammography 03/26/2018 12:3 6 PM EDT Impressions 03/26/2018 12:39 PM EDT No mammographic change indicative of malignancy. Routine screening is recommended. BI-RADS CATEGORY: 1 - Negative. DENSITY: The breast tissue is heterogeneously dense, an appearance which lowers the sensitivity of mammography. POS - [id number] Narrative 03/26/2018 12:39 PM EDT FINDINGS: Bilateral full-field digital screening mammography is obtained and read in conjunction with computer-aided detection. 3-D tomosynthesis as well as 2-D C view imaging is also performed. Comparison includes the most recent exam from 05/26/2015 and as far back as 02/10/2003. Breasts are composed of heterogeneously dense fibroglandular tissue which limits mammographic sensitivity. No new suspicious mass, suspicious microcalcifications, architectural distortion, focal skin thickening, or new asymmetry is detected. Procedure Note Nena Larios MD - 03/26/2018 FINDINGS: Bilateral full-field digital screening mammography is obtained and read inconjunction with computer-aided detection. 3-D tomosynthesis as well as2-D C view imaging is also performed. Comparison includes the most recentexam from 05/26/2015 and as far back as 02/10/2003. Breasts are composed of heterogeneously dense fibroglandular tissue whichlimits mammographic sensitivity. No new suspicious mass, suspiciousmicrocalcifications, architectural distortion, focal skin thickening, ornew asymmetry is detected. IMPRESSION: No mammographic change indicative of malignancy. Routine screening isrecommended. BI-RADS CATEGORY: 1 - Negative. DENSITY: The breast tissue is heterogeneously dense, an appearance whichlowers the sensitivity of mammography. POS - CDHMAM2 Alecia Rojas MD IMG MG EXAMS Final Resul t documented in this encounter Visit Diagnoses Diagnosis Breast screening Breast screening, unspecified Breast screening Breast screening, unspecified documented in this encounter Care Teams Miter Operator Relationship Specialty Start Date End Date Alecia Rojas MD [address] [place] [address] [email or web address] PCP - General 07/17/17 09/26/24 Eleonora Saldana PA [address] [place] [phone] PCP - General Physician Digital Advertising Specialist 09/27/24 Rody Angeles CNM [address] [place] [id number] Historical LMR Provider 05/03/17 2 Liudmila Laws MD [address] [place] [address], [address] [place] [address] [email or web address] Historical LMR Provider 05/03/17 Alecia Rojas MD [address] [place] [address] Historical LMR Provider 05/03/17 Misael Ley MD [address] [place] [id number] [email or web address] Historical LMR Provider 05/03/17 07/21/21 documented as of this encounter Additional Source Comments The information contained in this document represents components of the legal health record. It is not the complete legal health record.[facility]
--- OUTSIDE RECORDS SUMMARY | 2025-04-27 18:46 | XMS_ITS | Clinical Summary ---
Author Organization [facility] Address [address] [place] [address] Phone Care Team Providers Care Paper Deliverer Name Role Phone Alecia Rojas MD Primary Care Provider Alecia Rojas MD Unavailable [phone] Alecia Rojas MD Unavailable [phone] Allergies Active Allergy Reactions Criticality Noted Date Comments Penicillins Rash 10/29/2024 Sulfa (Sulfonamide Antibiotics) Rash 10/12 Medications amitriptyline 10 mg tablet Take 30 mg by mouth at bedtime. Active atorvastatin 10 mg tablet Take 10 mg by mouth 1 time each day. 05/14/2023 Active Social History Tobacco Use Types Packs/Day Years Used Date Smoking Tobacco: Never Assessed Comments No Sex and Gender Information Value Date Recorded Sex Assigned at Female 11/08/2024 12:34 PM EDT Legal Sex Female 11:15 PM EDT Gender Identity Female 11/08/2024 12:34 PM EDT Sexual Orientation Straight 11/08/2024 12 :34 PM EDT Last Filed Vital Signs Vital Sign Reading Time Taken Comments Blood Pressure 139/72 11/12/2024 2:48 PM EDT Pulse 72 11/12/2024 2:48 PM EDT Temperature 37.2 C (99 F) 11/12/2024 1:36 PM EDT Respiratory Rate 20 11/12/2024 2:48 PM EDT Oxygen Saturation 98% 11/12/2024 2:48 PM EDT Inhaled Oxygen Concentration - - Weight 50.4 kg (111 lb 1.8 oz) 11/12/2024 1:36 P M EDT Height - - Body Mass Index - - Plan of Treatment Health Maintenance Due Date Last Done Comments Chlamydia and Gonorrhea Screening 1960 HIV Screening 1960 MMR Vaccines (1 of 1 - Stand harrison series) 1960 Anemia Screening 1971 Varicella Vaccines (1 of 2 - 13+ 2-dose series) 1972 Hepatitis C Screening 1977 DTaP/Tdap/Td Vaccines (2 - T d or Tdap) 02/26/2024 01/29/2024 Influenza Vaccine (#1) 2025 HIB Vaccines Aged Out No longer eligi ble based on patient's age to complete this topic HPV Vaccines (No Doses Required) Completed Hepatitis A Vaccines Aged Out No long er eligible based on patient's age to complete this topic Hepatitis B Vaccines Aged Out No long er eligible based on patient's age to complete this topic IPV Vaccines Aged Out No longer eligi ble based on patient's age to complete this topic Meningococcal B Vaccine Aged Out No l onger eligible based on patient's age to complete this topic Meningococcal Vaccine Aged Out No anuja josie eligible based on patient's age to complete this topic Rotavirus Vaccines Aged Out No longer eligible based on patient's age to complete this topic Insurance [facility] MEDICARE BLUE CROSS - MASS MEDICARE Care Teams Paper Deliverer Relationship Specialty Start Date End Date Alecia Rojas MD [address] [address] PCP - General 09/18/16 Alecia Rojas MD [address] [address] PCP - Clinical PCP 09/18/16 Alecia Rojas MD [address] [address] PCP - Insurance PCP 09/18/16
== END 2025-04-27 15:13 | disposition home or self-care (01) ==
LOC: HO.XRAY 15:12
PROVIDERS: PCP Physician Assistant; Visit Provider Physician Assistant
DX: M79.675 Pain in left toe(s) (principal)
CPT/HCPCS: 73660

== ENCOUNTER → 2025-04-27 15:16 | Outpatient (BNV) | payer MEDICARE, BC, SELFPAY | PROVIDERS: PCP Physician Assistant; Visit Provider Radiology Diagnostic Radiology | DX: M79.675 Pain in left toe(s) (principal) | CPT/HCPCS: 73660 ==